=== PATIENT | male | born 1995 | race Caucasian/White ===

== ENCOUNTER 2017-03-12 23:47 | Emergency (ER) | payer BC ==
[~2017-03-12] VITALS: Ht 182.9 cm; Wt 91.2 kg
[2017-03-13 00:22] VITALS: TEMP 37; Ht 182.9 cm; Wt 91.2 kg
[2017-03-13 00:44] LABS: BUN/CREATININE RATIO 9.2 (10-20); CALCIUM 8.5 mg/dl (8.5-10.1); CREATININE 1.19 mg/dl (0.60-1.40); POTASSIUM 4.3 mmol/L (3.5-5.1)
--- NOTE | 2017-03-13 06:27 | EMERGENCY ROOM VISIT NOTE ---
History First contact with patient: 00:05 Chief Complaint: ALCOHOL OVERDOSE Stated Complaint: ALCOHOL OVERDOSE Nursing Triage Summary: found sleeping outside apart. no body to claim him History of Present Illness The patient is a 22 year old male who presents to the Emergency Room via EMS with concern for alcohol intoxication. Patient was found outside an apartment building sleeping, and no friends to take responsibility for him, so he was brought to the emergency department. Patient denies any injuries or pain. Review of Systems Limited ROS due to intoxicated state. Denies headache, chest pain, shortness of breath, nausea/vomiting. Past Medical/Surgical History No significant past medical history Social History Smoking Status: Never Smoker Alcohol Use: heavy Marital Status: single Housing Status: lives with roommate Occupation Status: [employer] student Current/Historical Medications No Active Prescriptions or Reported Meds Allergies NKA Physical Exam Vital Signs Date Time Temp Pulse Resp B/P (MAP) Pulse Ox O2 Delivery O2 Flow Rate FiO2 03/13/17 08:47 86 18 137/69 98 Room Air 03/13/17 06:28 81 18 123/51 99 Room Air 03/13/17 01:22 88 18 135/68 97 Room Air 03/13/17 00:28 89 03/13/17 00:22 37.0 85 18 154/92 95 Room Air 03/13/17 00:22 Room Air 03/13/17 00:22 Room Air Physical Exam VITALS - Vitals are noted on the nurse's note and reviewed by myself. Vital signs stable. GENERAL -pleasant and cooperative, in no acute distress, non-diaphoretic, well- developed well-nourished. The patient is visibly intoxicated. SKIN - The skin was without obvious lacerations, abrasions, or rashes. There is no tenting of the skin. Capillary reflex less than 2 seconds. HEENT - Normocephalic, atraumatic. PERRLA. EOMI. Conjunctiva with mild injection without icterus. Tympanic membranes without erythema or effusion bilaterally no hemotympanum. External auditory canals are clear. Nares patent bilaterally. No epistaxis. Oropharynx without erythema or exudate. Uvula midline. Oral mucosal moist. No lymphadenopathy. Neck is supple without cervical spine tenderness. HEART - Regular rate and rhythm without murmurs gallops or rubs. Peripheral pulses 2+. LUNGS - Clear to auscultation bilaterally without wheezes, rales or rhonchi. ABDOMEN - Positive bowel sounds x 4. Normal tympanic percussion. Soft, nontender, without masses or organomegaly. MUSCULOSKELETAL - Gross motor function of the upper and lower extremities intact. NEUROLOGIC - The patient is visibly intoxicated, but is awake and oriented to person/place. Medical Decision & Procedures Laboratory Results 03/12/17 23:58 Test 03/12/17 23:58 Anion Gap 7.0 mmol/L (3-11) Est Creatinine Clear Calc Drug Dose 106.9 ml/min Estimated GFR () 99.9 Estimated GFR (Non- 86.2 BUN/Creatinine Ratio 9.2 (10-20) Calcium Level 8.5 mg/dl (8.5-10.1) Chemistry Specimen Hemolysis Ethyl Alcohol mg/dL 282.0 mg/dl (0-3) ED Course Medical Decision In the evaluation and treatment of this patient, the following differential diagnoses were considered: Hypoglycemia, Barbiturate Toxicity, Benzodiazepine Toxicity, Depression and Suicidality, Diabetic Ketoacidosis, Encephalitis, Ethylene Glycol Toxicity, Meningitis, Metabolic Acidosis, Opioid Toxicity, CVA, TIA, Intracranial Abnormality, Acute Psychosis, Amongst Others. Patient was seen and evaluated by myself. Given the patient's presentation and exam findings, I did elect to perform the above-mentioned workup. The patient presents today visibly intoxicated. Aspiration precautions were instituted and the patient was placed in the prone position. The patient was placed on the school bus monitor and pulse oximetry was monitored throughout the entire stay in the emergency department. Labs were collected. Patient's medical alcohol was found to be elevated at 282 mg/dL. After a lengthy stay in the Emergency Department the patient eventually was awoken and educated on today's visit, and was deemed appropriate for discharge. They were encouraged to refrain from heavy drinking. All labs and diagnostics were reviewed. Patient was discharged home in stable condition and ambulatory. Head Trauma GCS Score: 15 Medication Reconcilliation Current Medication List: was not reviewed Blood Pressure Screening Patient's blood pressure: Elevated blood pressure Blood pressure disposition: Elevated BP felt to be situational Impression Primary Impression: Alcohol intoxication Departure Information Dispostion Home / Self-Care Condition GOOD Prescriptions No Active Prescriptions or Reported Meds Referrals No Doctor, Assigned (PCP) Patient Instructions ED Alcohol Intoxication, [facility] Additional Instructions Do not drink any further alcohol today and avoid such excessive drinking in the future. Drink plenty of fluids today to stay hydrated. Follow-up with your PCP as needed. Problem Qualifiers Primary Impression: Alcohol intoxication Complication of substance-induced condition: uncomplicated Qualified Codes: F10.920 - Alcohol use, unspecified with intoxication, uncomplicated
[2017-03-13 08:47] VITALS: BP 137/69; PULSE 86; O2SAT 98
== END 2017-03-13 09:04 | disposition home or self-care (01) ==
LOC: EDBD 23:47 → C.EDA 23:49
DX: F10.920 Alcohol use, unspecified with intoxication, uncomplicated (principal)